=== PATIENT | female | born 1980 | race Caucasian/White ===

== ENCOUNTER → 2022-09-14 15:39 | Outpatient (CLI) | payer BC, SELFPAY ==
[2022-09-14 18:45] LABS: Basophils % 0.5 % (0.1-2.0); Eosinophils # 0.1 K/mm3 (0.0-0.4); Eosinophils % 1.3 % (0.1-12.0); Hematocrit 41.1 % (37.0-47.0); Hemoglobin 13.3 g/dL (12.2-16.2); Lymphocytes # 2.5 K/mm3 (0.7-4.5); Lymphocytes % 32.2 % (10-50); Mean Corpuscular HGB Conc 32.3 g/dL (31.8-35.4); Mean Corpuscular Hemoglobin 29.6 pg (27.0-31.2); Mean Corpuscular Volume 91.7 fl (81-99); Mean Platelet Volume 10.2 fl (7.4-10.4); Monocytes # 0.4 K/mm3 (0.1-1.0); Monocytes % 4.9 % (1.7-9.3); Neutrophils # 4.8 K/mm3 (1.8-7.8); Neutrophils % 61.1 % (37.0-80.0); Platelet Count 290 K/mm3 (142-424); Red Blood Count 4.48 M/mm3 (4.20-5.40); Red Cell Distribution Width 13.4 % (11.5-17.5); White Blood Count 7.8 K/mm3 (4.8-10.8)
[2022-09-14 19:48] LABS: Alanine Aminotransferase 23 U/L (12-78); Albumin Level 4.7 g/dl (3.5-5.0); Albumin/Globulin Ratio 1.8 (1.1-1.8); Alkaline Phosphatase 56 U/L (38-126); Amylase 72 U/L (30-110); Anion Gap 18.3 mEq/L (5-15); Aspartate Amino Transferase 31 U/L (14-36); Bilirubin,Total 0.2 mg/dl (0.2-1.3); Blood Urea Nitrogen 14 mg/dl (7-17); Calcium 9.2 mg/dl (8.4-10.2); Carbon Dioxide 25 mmol/L (22.0-30.0); Chloride 99 mmol/L (98-107); Estimated Glomerular Filt Rate 80 ml/min (>60); GFR (African American) 97 ML/MIN (>60); Globulin 2.6 g/dL (1.3-3.2); Glucose 89 mg/dl (74-100); Lipase 94 U/L (23-300); Potassium 4.3 mmoL/L (3.5-5.1); Sodium 138 mmol/L (136-145); Total Protein,Serum 7.3 g/dl (6.3-8.2)
[2022-09-14 20:16] LABS: Thyroid Stimulating Hormone 1.09 uIU/mL (0.465-4.68)
[2022-09-14 20:35] LABS: Vitamin B12 382 pg/mL (239-931)
== END ==
PROVIDERS: PCP Family Medicine; Visit Provider Family Medicine
DX: K21.9 Gastro-esophageal reflux disease without esophagitis (principal); R53.83 Other fatigue
CPT/HCPCS: 80053; 82150; 82607; 83690; 84443; 85025

== ENCOUNTER → 2022-09-20 07:26 | Outpatient (CLI) | payer BC, SELFPAY ==
--- NOTE | 2022-09-20 07:30 | US_ITS ---
FINAL REPORT CLINICAL HISTORY: GERD FINDINGS: Sonographic images of the right upper quadrant were obtained. The pancreas is partially obscured.The liver has an unremarkable appearance.The gallbladder appears normal without evidence of gallstones.There is no evidence of biliary ductal dilatation.The common duct measures 3 mm. Limited images of the right kidney are unremarkable. IMPRESSION: Unremarkable right upper quadrant ultrasound. Reviewed, Interpreted and Dictated by Davis Shafer III, MD Transcribed by Carmita Howard Authenticated and [facility]
== END ==
PROVIDERS: PCP Family Medicine; Visit Provider Family Medicine
DX: K21.9 Gastro-esophageal reflux disease without esophagitis (principal)
CPT/HCPCS: 76705

== ENCOUNTER → 2022-09-21 08:04 | Outpatient (CLI) | payer BC, SELFPAY ==
--- NOTE | 2022-09-21 08:04 | FL_ITS ---
FINAL REPORT CLINICAL HISTORY: burning after eating .59 fluoro time FINDINGS: UPPER GI EXAM HISTORY: Abdominal pain, nausea. PROCEDURE: The patient ingested barium. Effervescent crystals were also administered. Spot and overhead films were obtained. FINDINGS: The esophagus is normal. There is no hiatal hernia. There is marked gastroesophageal reflux to the cervical esophagus. Peristalsis is normal. The rugal fold pattern of the stomach is normal. The duodenal bulb is normal. FLUOROSCOPY TIME: 0.59 minutes IMPRESSION: Marked gastroesophageal reflux to the cervical esophagus. Otherwise, unremarkable upper GI. Films reviewed , interpreted and dictated by Dr. Shafer Transcribed by Jason Rowe PA-C. Reviewed, Interpreted and Dictated by Davis Shafer III, MD Transcribed by TARIQ George Authenticated and . [facility]
== END ==
PROVIDERS: PCP Family Medicine; Visit Provider Family Medicine
DX: K21.9 Gastro-esophageal reflux disease without esophagitis (principal)
CPT/HCPCS: 74240; 74246